=== PATIENT | female | born 2000 | race African-American/Black ===

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

== ENCOUNTER 2020-04-25 10:08 | Emergency (ER) | payer MEDICAID ==
[~2020-04-25] VITALS: Ht 157.5 cm; Wt 105.2 kg
[2020-04-25 10:25] VITALS: BP 125/62; Ht 157.5 cm; Wt 105.2 kg
== END 2020-04-25 12:35 | disposition home or self-care (01) ==
LOC: ED 10:08
DX: S63.614A Unspecified sprain of right ring finger, initial encounter (principal); W23.0XXA Caught, crushed, jammed, or pinched between moving objects, initial encounter; Y93.89 Activity, other specified; Y92.89 Other specified places as the place of occurrence of the external cause; Y99.8 Other external cause status